=== PATIENT | male | born 1980 | race Caucasian/White ===

== ENCOUNTER 2024-11-21 08:09 | Day surgery (SDC) | payer BC ==
[~2024-11-21 08:09] MED LIST: Sodium Chloride 0.9% 10 ML Syringe FLUSH PRN; Sodium Chloride 0.9% 2.5 ML Syringe FLUSH PRN; Sodium Chloride 0.9% 20 ML SDV IV PRN
[2024-11-21] MEDS: Lactated Ringers 1,000 ML IV SCH (08:38)
[2024-11-21] MEDS ORDERED: propofoL 500 MG/50 ML 50 ML ONE (09:37)
[2024-11-21] MEDS ORDERED: Ketamine HCL/NACL, ISO-OSM 50 MG/5 ML Syringe ONE (09:50)
[2024-11-21] MEDS ORDERED: dexmedeTOMIDine HCl 200 MCG/2 ML SDV ONE (10:04)
[2024-11-21] MEDS ORDERED: Propofol 200 MG/20 ML SDV ONE (10:07)
== END 2024-11-21 11:12 | disposition home or self-care (01) ==
LOC: MW.SDS 08:09 → MERGE 08:30 → MW.SDS 11:12
PROVIDERS: ATTEND Surgery
DX: D50.9 Iron deficiency anemia, unspecified (principal); D12.0 Benign neoplasm of cecum; K63.5 Polyp of colon; K62.1 Rectal polyp; K22.10 Ulcer of esophagus without bleeding; K44.9 Diaphragmatic hernia without obstruction or gangrene; K21.9 Gastro-esophageal reflux disease without esophagitis; Z87.891 Personal history of nicotine dependence; I10 Essential (primary) hypertension; Z79.899 Other long term (current) drug therapy
CPT/HCPCS: 43239; 45380; J2704; J7120; 00813; J3490

== ENCOUNTER 2025-01-23 13:04 | Day surgery (SDC) | payer BC ==
[2025-01-23] MEDS ORDERED: Propofol 200 MG/20 ML SDV ONE (13:26)
[2025-01-23] MEDS: Lactated Ringers 1,000 ML IV SCH (13:27)
[2025-01-23] MEDS ORDERED: Lidocaine 2% 5 ML SDV ONE (13:28)
== END 2025-01-23 14:45 | disposition home or self-care (01) ==
LOC: MW.SDS 13:04
PROVIDERS: ATTEND Surgery
DX: K21.9 Gastro-esophageal reflux disease without esophagitis (principal); K44.9 Diaphragmatic hernia without obstruction or gangrene; D50.9 Iron deficiency anemia, unspecified; I10 Essential (primary) hypertension; Z79.899 Other long term (current) drug therapy; Z91.048 Other nonmedicinal substance allergy status
CPT/HCPCS: 43235; J2003; J2704; J7120